=== PATIENT | female | born 1960 | race Two or more races ===

== ENCOUNTER 2023-11-15 15:33 | Outpatient (CLI) | payer OTHER ==
[2023-11-15] MEDS ORDERED: GADOTERATE MEGLUMINE 7.5 MMOL/15 ML VIAL ONE (15:38)
[2023-11-15] MEDS: GADOTERATE MEGLUMINE 7.5 MMOL/15 ML VIAL IVP ONE (17:08)
--- NOTE | 2023-11-15 20:15 | MRI Report ---
PROCEDURE: Abdomen W/WO INDICATIONS: ABD MASS CONTRAST: CLARISCAN 13.6 ML TECHNIQUE: Coronal ultra fast SE, axial 2D spoiled GE in- and [id number]; axial breath-hold T2 fast SE. Dynam ic axial ultra fast GE during the administration of contrast; post-contrast coronal ultra fast GE or 2D spoiled GE with fat saturation from the hepatic dome to the iliac crests. Restricted diffusion margi ghted imaging and ADC. COMPARISON: MRI pelvis earlier today. FINDINGS: Image quality: Excellent. Lung bases and heart: Unremarkable. Liver: No solid mass. Gallbladder and biliary tree: No radiopaque stones or wall thickening. No biliary dilation. Spleen: No splenomegaly. Pancreas: No pancreatic ductal dilation. Adrenals: No adrenal nodule. Kidneys and ureters: No hydronephrosis. No renal cystic lesion which requires follow up. No solid mas s. Bowel and peritoneum: No bowel distension. No pathologic free fluid. Lymph nodes: No central or retroperitoneal adenopathy. Vessels: No infrarenal aortic aneurysm. Bones: No aggressive osseous abnormality. T12 and L1 compression fractures. Other: No significant ventral hernia. Cystic structure at the left lower quadrant measuring 6.1 cm, ( 10/07). IMPRESSION: No mass or adenopathy in the abdomen. No biliary or pancreatic ductal dilatation. No hydronephrosis. Please see separately dictated same day MRI pelvis. Reviewed by: Krzysztof Carvajal MD on 11/15/2023 8:13 PM PDT Approved by: Krzysztof Carvajal MD on 11/15/2023 8:13 PM PDT Station ID: [id number]
--- NOTE | 2023-11-15 20:21 | MRI Report ---
PROCEDURE: Pelvis W/WO INDICATIONS: ABD MASS CONTRAST: 13.6 cc Clariscan TECHNIQUE: Coronal ultra fast SE, sagittal T2 FSE, axial T1 FSE, axial and coronal nonbreath-hold T2 FSE. Axial dynamic ultra fast GE during administration of contrast. Post-contrast axial and coronal ultra fast GE / 2-D spoiled GE with fat saturation from the iliac crests to the symphysis. Restricted diffusion weighted imaging and ADC may be performed. COMPARISON: Same day MRI abdomen. FINDINGS: Image quality: Diagnostic. Bowel and peritoneum: No pathologic free pelvic fluid. Inferior colon and small bowel loops are nor mal in caliber. Genitourinary system: Bladder wall is normal in thickness. Distal ureters are non distended. Atrop hic anteverted postmenopausal uterus. No endometrial thickening seen. Nodes and vessels: No pathologic pelvic or inguinal adenopathy by size criteria. Iliac vessels are normal in caliber. Cystic cyst at the left pelvic brim measuring 6.2 x 4 cm, (9/10). Restricted diffu jae. No enhancement. No mural nodule. T1 hypointense. Soft tissues: No inguinal hernias. Bones: Marrow is normal in overall signal. IMPRESSION: Benign cyst at the left pelvic brim measuring 6.2 cm. This could represent a lymphocele. No solid enhancing mass. No adenopathy. No free fluid. Reviewed by: Krzysztof Carvajal MD on 11/15/2023 8:20 PM PDT Approved by: Krzysztof Carvajal MD on 11/15/2023 8:20 PM PDT Station ID: [id number]
== END 2023-11-15 15:34 | disposition home or self-care (01) ==
LOC: DI 15:33
PROVIDERS: ATTEND Registered Nurse
DX: N94.89 Other specified conditions associated with female genital organs and menstrual cycle (principal)